=== PATIENT | female | born 1960 | race Caucasian/White ===

== ENCOUNTER → 2019-07-01 | Outpatient (CLI) | payer OTHER ==
[~2019-07-01] MED LIST: ADALAT CC30 MG PO; ADVAIR 250-501 EACH INH; ALBUTEROL NEB INH; ALBUTEROL2.5 MG/31 INH; AMOX TR-K CLV1 EAC3 PO; AMPYRA10 MG PO; ASA5UEC PO; ASPIRIN325 PO; CALCIUM CITRAT1 EA14 PO; CENTRUM SILVER1 EAC2 PO; DAILY VITE1 EACH PO; FUROSEMIDE 20 M20 MG PO; HYDROCODON-ACE1 EAC7 PO; LASIX 20 MG TAB20 MG PO; LIPITOR80 MG PO; LISINOPRIL20 MG PO; LUNESTA3 MG PO; MACROBID 100 M100 M1 PO; MULTIVITAMINS PO; MULTIVITAMINS1 EAC7 PO; NABUMETONE 500500 M1 PO; NEXIUM40 MG PO; NICODERM CQ1 EAC1 TRANSDERM; NIFEDICAL XL30 MG PO; NIFEDICAL XL60 MG; NORCO 5-325 TA1 EACH PO; PLAVIX 75 MG TA75 MG PO; POTASSIUM CHLO20 ME1 PO; POTASSIUM20 PO; PREDNISONE 20 M20 M1 PO; PREDNISONE50 MG PO; PROAIR HFA8.5 GM INH; SINGULAIR 10 MG10 M1 PO; SPIRIVA INH; TAMSULOSIN HCL0.4 MG PO; TRAMADOL 50 MG50 MG PO; VENTOLIN HFA INH8 GM IH; VENTOLIN17 GM INH
== END ==
LOC: RAD 14:50
DX: I42.9 Cardiomyopathy, unspecified (principal); I11.9 Hypertensive heart disease without heart failure

== ENCOUNTER → 2021-01-09 | Outpatient (CLI) | payer OTHER | LOC: RAD 12:32 | PROVIDERS: ATTEND Internal Medicine | DX: J44.9 Chronic obstructive pulmonary disease, unspecified (principal); R06.02 Shortness of breath ==